=== PATIENT | male | born 1940 | race Caucasian/White ===

== ENCOUNTER 2016-06-07 19:41 | Emergency (ER) | payer MEDICARE, OTHER ==
--- NOTE | ~2016-06-07 | CR229 ---
[facility] A Service of [facility] & [facility] RADIOLOGY TEXT RESULTS PATIENT: NORMA BLANCO LOCATION: [facility] : 39 UNIT #: [id number] AGE: [address]: James Shepherd MD SEX: M ORDER DR: [id number] [facility] [address] [place], [place] [address] [id number] E MR#: [id number] Acc #: [id number] NAME: NORMA BLANCO. : 1940 SEX: M STUDY DATE/TIME: 06/07/2016 20:04 UNIT: [facility] ROOM: STUDY DESCRIPTION: CR Shoulder Min 2 View Lt Attending Physician: James Shepherd M.D. Ordering Physician: James Shepherd M.D. Primary Care Physician: Nahed Yanez M.D. MEDICAL IMAGING REPORT This report is preliminary unless electronic signature is present EXAM Left shoulder series dated 06/07/2016. COMPARISON Left humerus series dated 06/07/2016. HISTORY Left shoulder pain for 2 days, post fall. FINDINGS 2 views of the left shoulder were obtained. There is a complete mildly displaced fracture of the left humeral head and neck without any associated dislocation. The fracture line extends to involve the left greater tuberosity. It is probably some adjacent soft tissue swelling. There is bony irregularity of the left lateral clavicle which could be related to old trauma with widening of the left acromioclavicular joint space. It measures 14 mm and has some dystrophic calcifications in this region/spurs. The acromioclavicular changes are also seen in the chest x-ray from 01/02/2016 confirming the chronicity. Dictated by... Lakia Chang M.D. THIS IS AN ELECTRONICALLY VERIFIED REPORT Lakia Chang M.D. at 06/08/2016 10:31 AM CPR/ea TD: 06/08/2016 04:29 JOB #: [id number] [facility] A Service of [facility] & [facility] RADIOLOGY TEXT RESULTS PATIENT: NORMA BLANCO [id number] : 39 UNIT #: [id number] AGE: [address]: James Shepherd MD SEX: M ORDER DR: MEDICAL IMAGING REPORT COPY
--- NOTE | ~2016-06-07 | CR156 ---
[facility] A Service of [facility] & [facility] RADIOLOGY TEXT RESULTS PATIENT: NORMA BLANCO LOCATION: [facility] : 39 UNIT #: [id number] AGE: [address]: James Shepherd MD SEX: M ORDER DR: [id number] [facility] [address] [place], [place] [address] [id number] E MR#: [id number] Acc #: [id number] NAME: NORMA BLANCO. : 1940 SEX: M STUDY DATE/TIME: 06/07/2016 20:04 UNIT: [facility] ROOM: STUDY DESCRIPTION: CR Humerus Min 2 View Lt Attending Physician: James Shepherd M.D. Ordering Physician: James Shepherd M.D. Primary Care Physician: Nahed Yanez M.D. MEDICAL IMAGING REPORT This report is preliminary unless electronic signature is present EXAM Left humeral series, 06/07/2016 COMPARISON Left shoulder series dated 06/07/2016 HISTORY Left shoulder pain for 2 days, status post fall. FINDINGS 2 views of the left humerus were obtained. There is a complete mildly displaced fracture of the left humeral head close to the neck. It extends to neural portions of the neck also. No associated dislocation is seen. Surrounding soft tissues do not demonstrate any radiopaque foreign body. Mild soft tissue swelling cannot be excluded. Dictated by... Lakia Chang M.D. THIS IS AN ELECTRONICALLY VERIFIED REPORT Lakia Chang M.D. at 06/08/2016 10:31 AM CPR/lolis TD: 06/08/2016 04:30 JOB #: [id number] MEDICAL IMAGING REPORT COPY
[~2016-06-07 19:41] MED LIST: AMANTADINE100 M1 PO; AMBIEN PO; AMLODIPINE BESYL5 MG PO; APAP325 MG PO; APRESOLINE PO; ARTIFICIAL TEAR15 M3 OP; ASPIRIN EC81 M1 PO; ASPIRIN81 MG PO; ATIVAN0.5 M1 PO; BIOFREEZE118 ML TOP; DESYREL50 MG PO; DIAZEPAM PO; HYDROCODON-ACE1 EAC9 PO; KCL PO; KLOR-CON PO; LIPITOR80 MG PO; LISINOPRIL20 MG PO; MELATONIN5 M1 PO; MILK OF MAGNESIA PO; NORVASC PO; NORVASC2.5 MG PO; POTASSIUM CHLO10 ME1 PO; POTASSIUM CHLO10 MEQ PO; PROTONIX PO; PROZAC PO; RITALIN5 MG PO; SARAFEM20 MG PO; SYMMETREL100 M1 PO; TRAMADOL HCL50 M1 PO; TYLENOL325 M1 PO; ULTRAM PO; VICODIN 5/500 T1 TAB PO; ZOFRAN ODT4 MG PO; ZOFRAN PO
== END 2016-06-07 23:06 | disposition home or self-care (01) ==
LOC: CED 19:41
DX: S42.202A Unspecified fracture of upper end of left humerus, initial encounter for closed fracture (principal); I10 Essential (primary) hypertension; W01.0XXA Fall on same level from slipping, tripping and stumbling without subsequent striking against object, initial encounter; Y92.9 Unspecified place or not applicable
CPT/HCPCS: 73030; 73060; 99284

== ENCOUNTER 2016-08-17 06:55 | Emergency (ER) | payer MEDICARE, OTHER ==
--- NOTE | ~2016-08-17 | CT71 ---
[facility] A Service of [facility] & [facility] RADIOLOGY TEXT RESULTS PATIENT: NORMA BLANCO LOCATION: [facility] : 39 UNIT #: [id number] AGE: [address]: Annetta Prince SEX: M ORDER DR: [id number] [facility] [address] [place], [place] [address] [id number] E MR#: [id number] Acc #: [id number] NAME: NORMA BLANCO. : 1940 SEX: M STUDY DATE/TIME: 08/17/2016 8:23 UNIT: [facility] ROOM: STUDY DESCRIPTION: CT Head Wo Contrast Attending Physician: Annetta Prince Pa-C Ordering Physician: Annetta Prince Pa-C Primary Care Physician: Nahed Yanez M.D. MEDICAL IMAGING REPORT This report is preliminary unless electronic signature is present EXAM CT of the head 08/17/2016 HISTORY Left shoulder neck pain head pain today. Tripped and fell at [facility] today. TECHNIQUE CT head performed skull base through vertex without intravenous contrast. This CT exam was performed with one or more of the following radiation dose reduction techniques: automatic exposure control, adjustment of mA and/or kV according to patient size, and iterative reconstruction. COMPARISON 03/14/2016 FINDINGS Brainstem unremarkable. Cerebellum unremarkable. Prominent area of encephalomalacic change posterior right temporal lobe extending through right occipital lobe consistent with remote vascular insult. Stable. Area of encephalomalacic change at the anterior left frontal lobe vertex. Stable and consistent with remote vascular insult. No intracranial hemorrhage. No evidence of acute cortical ischemia. Midline structures nondisplaced. Ventricles, cisterns and sulci show bhux-qg-wsmmrzge generalized enlargement, stable, consistent with generalized atrophy. Periventricular and deep white matter tract probable sequelae of chronic microvascular ischemia. Cavernous carotid and distal vertebral arterial calcifications. Intraorbital soft tissues unremarkable. The visualized paranasal sinuses and mastoid air cells show mild mucosal thickening ethmoid air cells. No fracture. The extracranial soft tissues show no soft tissue defect, subcutaneous air, or radiodense foreign body. IMPRESSION [facility] A Service of [facility] & [facility] RADIOLOGY TEXT RESULTS PATIENT: NORMA BLANCO LOCATION: [facility] : 39 UNIT #: [id number] AGE: [address]: Annetta Prince SEX: M ORDER DR: 1. No acute abnormality in the brain. If patient has ongoing neurologic symptoms, consider follow up imaging. 2. Chronic changes include the following: Tgus-zp-orueosgm generalized atrophy, periventricular and deep white matter tract probable sequelae of chronic microvascular ischemia, encephalomalacic changes right temporo-occipital region and left frontal vertex consistent with remote vascular insult, vascular calcifications. 3. No fracture. 4. Minimal mucosal thickening ethmoid air cells. Dictated by... Bora Hines M.D. THIS IS AN ELECTRONICALLY VERIFIED REPORT Bora Hines M.D. at 08/17/2016 6:14 PM SUNIL/lonnie TD: 08/17/2016 10:08 JOB #: [id number] MEDICAL IMAGING REPORT Page 1 of 1 COPY
--- NOTE | ~2016-08-17 | CR229 ---
[facility] A Service of [facility] RADIOLOGY TEXT RESULTS PATIENT: NORMA BLANCO LOCATION: [facility] : 39 UNIT #: [id number] AGE: [address]: Annetta Prince SEX: M ORDER DR: [id number] [facility] [address] [place], [place] [address] [id number] P MR#: [id number] Acc #: [id number] NAME: NORMA BLANCO : 1940 SEX: M STUDY DATE/TIME: 08/17/2016 8:05 UNIT: [facility] ROOM: STUDY DESCRIPTION: CR Shoulder Min 2 View Lt Attending Physician: Annetta Prince Pa-C Ordering Physician: Annetta Prince Pa-C Primary Care Physician: Nahed Yanez M.D. MEDICAL IMAGING REPORT This report is preliminary unless electronic signature is present EXAM Left shoulder, 08/17 HISTORY Left shoulder pain after a fall today. FINDINGS Three views of the left shoulder are compared with multiple prior studies dating back to 06/07/2016. Redemonstrated is the known fracture across the anatomic neck of the proximal humerus. The fracture appears to extend through the greater tuberosity. There is nothing to suggest any interval healing. There is glenohumeral arthropathy. There is chronic widening of the AC joint. Postoperative change may be present in the distal clavicle. Correlate with history. There may be slightly more lateral displacement of the humeral diaphysis relative to the humeral head on today's study. There is now up to about 12.0 mm of displacement. IMPRESSION There is a known fracture across the anatomic neck of the proximal humerus. The fracture had been present on multiple exams. There may be slightly more lateral displacement of the humeral diaphysis relative to the humeral head as compared with the previous exams. Chronic changes at the AC joint are stable. Dictated by... Gregory Hutton Jr., M.D. THIS IS AN ELECTRONICALLY VERIFIED REPORT Gregory Hutton Jr., M.D. at 08/17/2016 4:58 PM RLMalinda TD: 08/17/2016 09:08 [facility] A Service of [facility] & [facility] RADIOLOGY TEXT RESULTS PATIENT: NORMA BLANCO LOCATION: [facility] #: [id number] : 39 UNIT #: [id number] AGE: [address]: Annetta Prince SEX: M ORDER DR: HECTOR #: [id number] MEDICAL IMAGING REPORT Page 1 of 1 COPY
--- NOTE | ~2016-08-17 | CR93 ---
[facility] A Service of [facility] & [facility] RADIOLOGY TEXT RESULTS PATIENT: NORMA BLANCO LOCATION: [facility] : 39 UNIT #: [id number] AGE: [address]: Annetta Prince SEX: M ORDER DR: [id number] [facility] [address] [place], [place] [address] [id number] P MR#: [id number] Acc #: [id number] NAME: NORMA BLANCO : 1940 SEX: M STUDY DATE/TIME: 08/17/2016 8:10 UNIT: [facility] ROOM: STUDY DESCRIPTION: CR Elbow Min 3 Views Lt Attending Physician: Annetta Prince Pa-C Ordering Physician: Annetta Prince Pa-C Primary Care Physician: Nahed Yanez M.D. MEDICAL IMAGING REPORT This report is preliminary unless electronic signature is present EXAM Left elbow, 08/17. HISTORY Elbow pain after a fall today. FINDINGS 3 views of the left elbow were obtained. No acute fracture or malalignment is seen. Allowing for suboptimal positioning, no definite joint effusion is present. There is posterior olecranon spur. There is also some chronic spurring about the lateral epicondyle of the distal humerus. IMPRESSION Chronic spurring about the elbow. No acute fracture. Dictated by... Gregory Hutton Jr., M.D. THIS IS AN ELECTRONICALLY VERIFIED REPORT Gregory Hutton Jr., M.D. at 08/17/2016 4:58 PM KAYLA/duyen TD: 08/17/2016 09:21 JOB #: [id number] MEDICAL IMAGING REPORT Page 1 of 1 COPY
--- NOTE | ~2016-08-17 | CT52 ---
[facility] A Service [facility] RADIOLOGY TEXT RESULTS PATIENT: NORMA BLANCO LOCATION: [facility] : 39 UNIT #: [id number] AGE: [address]: Annetta Prince SEX: M ORDER DR: [id number] [facility] [address] [place], [place] [address] [id number] E MR#: [id number] Acc #: [id number] NAME: NORMA BLANCO. : 1940 SEX: M STUDY DATE/TIME: 08/17/2016 8:23 UNIT: [facility] ROOM: STUDY DESCRIPTION: CT Cervical Spine Wo Cont Attending Physician: Annetta Prince Pa-C Ordering Physician: Annetta Prince Pa-C Primary Care Physician: Nahed Yanez M.D. MEDICAL IMAGING REPORT This report is preliminary unless electronic signature is present EXAM CT scan of the cervical spine without contrast HISTORY Left shoulder and neck pain today after falling at [facility]. COMPARISON 03/14/2016 TECHNIQUE Axial 2.0 mm images were obtained through the cervical spine and sagittal and coronal reconstructions were generated. This CT exam was performed with one or more of the following radiation dose reduction techniques: automatic exposure control, adjustment of mA and/or kV according to patient size, and iterative reconstruction. FINDINGS The images through the shoulders are very grainy with affects C7 and T1. There is no fracture visible. There is no subluxation. There is mild disc space narrowing at C5 through T1. IMPRESSION No fracture or subluxation is visible. There are degenerative changes in the lower cervical spine. Dictated by... Michael Hernandez M.D. THIS IS AN ELECTRONICALLY VERIFIED REPORT Michael Hernandez M.D. at 08/17/2016 11:56 AM MARTHA/jose luis [facility] A Service [facility] RADIOLOGY TEXT RESULTS PATIENT: NORMA BLANCO LOCATION: [facility] : 39 UNIT #: [id number] AGE: [address]: Annetta Prince SEX: M ORDER DR: TD: 08/17/2016 10:45 JOB #: [id number] MEDICAL IMAGING REPORT Page 1 of 1 COPY
== END 2016-08-17 10:16 | disposition home or self-care (01) ==
LOC: CED 06:55
DX: S42.292A Other displaced fracture of upper end of left humerus, initial encounter for closed fracture (principal); I10 Essential (primary) hypertension; F03.90 Unspecified dementia, unspecified severity, without behavioral disturbance, psychotic disturbance, mood disturbance, and anxiety; Z86.73 Personal history of transient ischemic attack (TIA), and cerebral infarction without residual deficits; W01.0XXA Fall on same level from slipping, tripping and stumbling without subsequent striking against object, initial encounter; Y92.129 Unspecified place in nursing home as the place of occurrence of the external cause
CPT/HCPCS: 70450; 72125; 73030; 73080; 99284

== ENCOUNTER → 2016-11-21 | Outpatient (CLI) | payer MEDICARE, OTHER ==
--- NOTE | ~2016-11-21 | CT2 ---
[facility] A Service of [facility] RADIOLOGY TEXT RESULTS PATIENT: NORMA BLANCO [facility]: [facility] : 39 UNIT #: [id number] AGE: [address]: Nataly Perry MD SEX: M ORDER DR: [id number] [facility] [address] [place], [place] [address] [id number] O MR#: [id number] [facility] #: [id number] NAME: NORMA BLANCO : 1940 SEX: M STUDY DATE/TIME: 11/21/2016 8:31 UNIT: [facility] ROOM: STUDY DESCRIPTION: CT Abd and Pelv W Cont Attending Physician: Nataly Perry M.D. Referring Physician: Nataly Perry M.D. Ordering Physician: Nataly Perry M.D. Primary Care Physician: Nahed Yanez M.D. 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 Followup. Observation for suspected malignant neoplasm. Active malignancy. Status post cholecystectomy. No history of chemotherapy or radiation therapy. HISTORY Contrast-enhanced abdomen and pelvis CT was performed and compared with 05/16/2016. This CT exam was performed with one or more of the following radiation dose reduction techniques: Automatic exposure control, adjustment of mA and/or kV according to patient size, and iterative reconstruction. FINDINGS CT ABDOMEN: Included lung bases demonstrate a benign micronodule in the right lower lobe unchanged dating back to 2014. Please see the separately dictated chest CT for further details. Aorta demonstrates no aneurysm or dissection. Spleen and adrenal glands are unremarkable. The pancreas is atrophic. Gallbladder unremarkable. Probable mild fatty infiltration of the liver. Kidneys demonstrate an incidental right renal cyst. Stomach not well distended or evaluated. No adenopathy. CT PELVIS: Prostate borderline in size, bladder unremarkable. No drainable fluid collection in the pelvis. There is fluid distension of the rectosigmoid colon which may reflect diarrhea. There is no bowel obstruction or focal inflammatory change of the bowel. Appendix not identified and appears to be surgically absent. Inguinal canals unremarkable. There is no suspicious bone lesion. 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 Minimal grade 1 antegrade listhesis of L5 on S1. [facility] A Service of [facility] & [facility] RADIOLOGY TEXT RESULTS PATIENT: NORMA BLANCO LOCATION: [facility] : 39 UNIT #: [id number] AGE: [address]: Nataly Perry MD SEX: M ORDER DR: IMPRESSION 1. Negative CT of the abdomen and pelvis. No new evidence of adenopathy or other acute finding. 2. Mild fatty infiltration of the liver. 3. Right renal cyst. 4. 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 Dictated by... Bi Houston M.D. THIS IS AN ELECTRONICALLY VERIFIED REPORT Bi Houston M.D. at 11/21/2016 4:32 PM Celestino TD: 11/21/2016 13:10 JOB #: [id number] MEDICAL IMAGING REPORT Page 1 of 1 COPY
--- NOTE | ~2016-11-21 | CT55 ---
[facility] A Service of [facility] & [facility] RADIOLOGY TEXT RESULTS PATIENT: NORMA BLANCO LOCATION: [facility] : 39 UNIT #: [id number] AGE: [address]: Nataly Perry MD SEX: M ORDER DR: [id number] [facility] [address] [place], [place] [address] [id number] O MR#: [id number] [facility] #: [id number] NAME: NORMA BLANCO : 1940 SEX: M STUDY DATE/TIME: 11/21/2016 8:31 UNIT: [facility] ROOM: STUDY DESCRIPTION: CT Chest W Con Attending Physician: Nataly Perry M.D. Referring Physician: Nataly Perry M.D. Ordering Physician: Nataly Perry M.D. Primary Care Physician: Nahed Yanez M.D. MEDICAL IMAGING REPORT This report is preliminary unless electronic signature is present EXAM Chest CT with contrast 11/21/2016 INDICATION 76-year-old male with lymphoma, intraabdominal lymph nodes. Follow up. Heart murmur, hypertension, history of cholecystectomy. No chemotherapy or radiation therapy. Observation for suspected malignant neoplasm. Active malignancy. Small cell B-cell lymphoma. TECHNIQUE Contrast enhanced CT of the chest was performed. This CT examination was performed with one or more of the following radiation dose reduction techniques: automatic exposure control, adjustment of mA and/or kV according to patient size, and iterative reconstruction. COMPARISON 05/16/2016. FINDINGS There is motion degradation. There is atelectasis in the lung bases. There are also atelectatic changes in the lingula. There is a tiny micronodule in the subpleural right lower lobe. This is unchanged dating back to July 2014 and therefore benign based on long-term stability. No new suspicious pulmonary nodule. Included thyroid unremarkable. No pericardial effusion. No axillary adenopathy or mediastinal adenopathy. Aorta demonstrates atherosclerotic change. Included upper abdomen is negative. Please see separately dictated abdomen and pelvis CT same date for further details. There are degenerative changes in the thoracic spine. STS. [facility] A Service of [facility] & [facility] RADIOLOGY TEXT RESULTS PATIENT: NORMA BLANCO LOCATION: [facility] : 39 UNIT #: [id number] AGE: [address]: Nataly Perry MD SEX: M ORDER DR: IMPRESSION 1. No clearly acute process in the chest. No new suspicious pulmonary nodule or new adenopathy. Tiny micronodule in the right lower lobe is benign and unchanged dating back to at least 2014. 2. Upper abdomen negative. Dictated by... Bi Houston M.D. THIS IS AN ELECTRONICALLY VERIFIED REPORT Bi Houston M.D. at 11/21/2016 4:32 PM LACEY/janeth TD: 11/21/2016 12:58 JOB #: [id number] MEDICAL IMAGING REPORT Page 1 of 1 COPY
[2016-11-21 11:31] LABS: POC - CREATININE 1.04 mg/dL (0.64-1.27); POC - GFR >60.0 mL/min (>60)
== END | disposition home or self-care (01) ==
LOC: CCAT 07:15
PROVIDERS: Internal Medicine Hematology
DX: C83.03 Small cell B-cell lymphoma, intra-abdominal lymph nodes (principal); K76.0 Fatty (change of) liver, not elsewhere classified; N28.1 Cyst of kidney, acquired
CPT/HCPCS: 71260; 74177; 82565; Q9967